=== PATIENT | male | born 1945 | race Caucasian/White ===

== ENCOUNTER 2016-09-10 04:40 | Emergency (ER) | payer OTHER ==
[~2016-09-10] VITALS: Ht 188 cm; Wt 93.5 kg
[2016-09-10 04:43] VITALS: BP 129/91; PULSE 91; RESP 22; TEMP 97.7; O2SAT 95
[2016-09-10] MEDS ORDERED: CARB10TA2 PO (05:18)
[2016-09-10] MEDS ORDERED: AZIL1TAB2 PO (05:18)
[2016-09-10] MEDS ORDERED: KETOROLAC TROMETHAMINE 30 MG/ML (IVP) VIAL IVP ONE (05:30)
[2016-09-10] MEDS ORDERED: ONDANSETRON HCL 4 MG/2 ML VIAL IVP ONE (05:30)
[2016-09-10] MEDS ORDERED: HYDROmorphone HCL PF 1 MG/ML VIAL IVS ONE (05:30)
[2016-09-10] MEDS ORDERED: SODIUM CHLORIDE 0.9% FLUSH 5 ML FLUSH IVF PRN (05:30)
[2016-09-10 05:38] VITALS: O2SAT 97
[2016-09-10 05:44] LABS: AUTOMATED NEUTROPHIL # 4.5 TH/MM3 (1.8-7.7); BASOPHIL % 0.4 % (0.0-2.0); EOSINOPHIL # 0.1 TH/MM3 (0-0.4); EOSINOPHIL % 1.1 % (0.0-4.0); HEMATOCRIT 44.4 % (39.0-51.0); HEMO FLAGS DIFF FINAL; LYMPH % 21.3 % (9.0-44.0); LYMPHOCYTE # 1.4 TH/MM3 (1.0-4.8); MEAN CELL VOLUME 91.6 FL (80.0-100.0); MEAN CORPUSCULAR HEMOGLOBIN 31.3 PG (27.0-34.0); MEAN CORPUSCULAR HGB CONC 34.2 % (32.0-36.0); MONO % 11.1 % (0.0-8.0); NEUT % 66.1 % (16.0-70.0); PLATELET COUNT 142 TH/MM3 (150-450); RED BLOOD COUNT 4.85 MIL/MM3 (4.50-5.90); RED CELL DISTRIBUTION WIDTH 13.4 % (11.6-17.2); WHITE BLOOD COUNT 6.7 TH/MM3 (4.0-11.0)
[2016-09-10 05:47] LABS: BICARBONATE 24.9 MEQ/L (21.0-32.0); POTASSIUM 3.9 MEQ/L (3.5-5.1)
--- NOTE | 2016-09-10 05:58 | RADRPT ---
EXAM DATE/TIME: 09/10/2016 05:43 [facility] COMPARISON: No previous studies available for comparison. INDICATIONS : Left flank pain x4 days. ORAL CONTRAST: No oral contrast ingested. RADIATION DOSE: 11.29 CTDIvol (mGy) MEDICAL HISTORY : Renal calculi. SURGICAL HISTORY : None. ENCOUNTER: Initial ACUITY: 4 - 6 days PAIN SCALE: 4/10 LOCATION: Left flank TECHNIQUE: Volumetric scanning of the abdomen and pelvis was performed. Using automated exposure control and ad justment of the mA and/or kV according to patient size, radiation dose was kept as low as reasonably achievable to obtain optimal diagnostic quality images. FINDINGS: LOWER LUNGS: Small left effusion and left basilar atelectasis. LIVER: Homogeneous density without lesion. There is no dilation of the biliary tree. No calcified gallston es. SPLEEN: Normal size without lesion. PANCREAS: Within normal limits. KIDNEYS: No mass or hydronephrosis. 2 mm left upper pole renal calculus. ADRENAL GLANDS: Within normal limits. VASCULAR: Atherosclerotic calcifications of the aorta and iliac vessels. BOWEL/MESENTERY: The stomach, small bowel, and colon demonstrate no acute abnormality. There is no free intraperitone al air or fluid. There is diverticulosis of the sigmoid colon. ABDOMINAL WALL: Small fat containing umbilical hernia. Small fat containing left inguinal hernia. RETROPERITONEUM: There is no lymphadenopathy. BLADDER: No wall thickening or mass. REPRODUCTIVE: Within normal limits. INGUINAL: There is no lymphadenopathy or hernia. MUSCULOSKELETAL: [id number] degenerative changes of the lumbar spine. L5 spondylolysis. CONCLUSION: 1. Nonobstructing left upper pole renal calculus. 2. Diverticulosis 3. Fat containing umbilical hernia and left inguinal hernia. 4. Atherosclerosis. Que Leal MD on September 10, 2016 at 5:54 Board Certified Radiologist. This report was verified electronically.
[2016-09-10] MEDS ORDERED: AZIT250T3 PO (06:30)
[2016-09-10] MEDS ORDERED: SODIUM CHLOR 0.9% 1000 ML INJ 1,000 ML IV ONE (06:30)
[2016-09-10] MEDS ORDERED: HYDR-3534 PO (06:31)
--- NOTE | 2016-09-10 06:31 | PD ---
HPI Chief Complaint: Flank/Kidney Pain Time Seen by Provider: 05:01 Travel History International Travel<30 days: No Contact w/Intl Traveler<30days: No Traveled to known affect area: No History of Present Illness HPI The patient 70 years old. He had a fall about 3 days prior and landed on his left side. Since then the pain has been worsening. Intervals of spasming pain which apparently radiate throughout the body. He is unsure if she has had hematuria due to limited carbidopa medications. He has a history of kidney stones previously many years ago. He's had no fever nausea vomiting or diarrhea. He does report some mild shortness of breath. PFSH Past Medical History Diminished Hearing: No Kidney Stones: Yes Neurologic: Yes ([facility]IN[facility]S) Social History Alcohol Use: Yes (2 BEERS DAILY) Tobacco Use: No Substance Use: No Allergies-Medications (Allergen,Severity, Reaction): Coded Allergies: No Known Allergies (Unverified , 09/10/16) Reported Meds & Prescriptions Reported Meds & Active Scripts Active Lortab (Hydrocodone-Acetaminophen) 7.5-325 Mg Tab 1-2 Tab PO Q6H PRN Azithromycin 250 Mg Tab 250 Mg PO DAILY 4 Days Reported Azilect (Rasagiline) 1 Mg Tab 1 Mg PO DAILY Carbidopa-Levodopa 10-100 Mg Tab 1 Tab PO QID Review of Systems Except as stated in HPI: all other systems reviewed are Neg General / Constitutional: No: Fever, Chills Cardiovascular: No: Chest Pain or Discomfort Physical Exam Narrative GENERAL: 70 yo M, WNWD, NAD SKIN: Warm and dry. HEAD: Atraumatic. Normocephalic. EYES: Pupils equal and round. No scleral icterus. No injection or drainage. ENT: No nasal bleeding or discharge. Mucous membranes pink and moist. NECK: Trachea midline. No JVD. CARDIOVASCULAR: Regular rate and rhythm. RESPIRATORY: No accessory muscle use. Clear to auscultation. Breath sounds equal bilaterally. GASTROINTESTINAL: Abdomen soft, non-tender, nondistended. Hepatic and splenic margins not palpable. MUSCULOSKELETAL: Extremities without clubbing, cyanosis, or edema. No obvious deformities. NEUROLOGICAL: Awake and alert. No obvious cranial nerve deficits. Parkinson's disease hx. PSYCHIATRIC: Appropriate mood and affect; insight and judgment normal. Data Data Last Documented VS Vital Signs Date Time Temp Pulse Resp B/P Pulse Ox O2 Delivery O2 Flow Rate FiO2 09/10/16 05:38 97 Room Air 09/10/16 04:43 97.7 91 22 129/91 Orders Basic Metabolic Panel (Bmp) (09/10/16 05:18) Complete Blood Count With Diff (09/10/16 05:18) Urinalysis - C+S If Indicated (09/10/16 05:18) Ct Abd/Pel W/O Iv Contrast (09/10/16 05:18) Iv Access Insert/Monitor (09/10/16 05:18) Ecg Monitoring (09/10/16 05:18) Oximetry (09/10/16 05:18) Ondansetron Inj (Zofran Inj) (09/10/16 05:30) Sodium Chloride 0.9% Flush (Ns Flush) (09/10/16 05:30) Ketorolac Inj (Toradol Inj) (09/10/16 05:30) Hydromorphone Pf Inj (Dilaudid Pf Inj) (09/10/16 05:30) Sodium Chlor 0.9% 1000 Ml Inj (Ns 1000 M (09/10/16 06:30) Chest, Single Ap (09/10/16 ) Labs Laboratory Tests Test 09/10/16 05:20 White Blood Count 6.7 TH/MM3 Red Blood Count 4.85 MIL/MM3 Hemoglobin 15.2 GM/DL Hematocrit 44.4 % Mean Corpuscular Volume 91.6 FL Mean Corpuscular Hemoglobin 31.3 PG Mean Corpuscular Hemoglobin 34.2 % Concent Red Cell Distribution Width 13.4 % Platelet Count 142 TH/MM3 Mean Platelet Volume 8.7 FL Neutrophils (%) (Auto) 66.1 % Lymphocytes (%) (Auto) 21.3 % Monocytes (%) (Auto) 11.1 % Eosinophils (%) (Auto) 1.1 % Basophils (%) (Auto) 0.4 % Neutrophils # (Auto) 4.5 TH/MM3 Lymphocytes # (Auto) 1.4 TH/MM3 Monocytes # (Auto) 0.8 TH/MM3 Eosinophils # (Auto) 0.1 TH/MM3 Basophils # (Auto) 0.0 TH/MM3 CBC Comment DIFF FINAL Differential Comment Sodium Level 144 MEQ/L Potassium Level 3.9 MEQ/L Chloride Level 111 MEQ/L Carbon Dioxide Level 24.9 MEQ/L Anion Gap 8 MEQ/L Blood Urea Nitrogen 17 MG/DL Creatinine 1.06 MG/DL Estimat Glomerular Filtration 69 ML/MIN Rate Random Glucose 107 MG/DL Calcium Level 8.7 MG/DL MDM Medical Decision Making Medical Screen Exam Complete: Yes Emergency Medical Condition: Yes Medical Record Reviewed: Yes Differential Diagnosis Renal stone/ureteric stone, UTI, pulmonary contusion, atelectasis, L rib contusion Narrative Course CBC & BMP Diagram 09/10/16 05:20 Last 24 hours Impressions Abdomen/Pelvis CT 09/10/16 0518 Signed Impressions: Service Date/Time: Saturday, September 10, 2016 05:43 - CONCLUSION: 1. Nonobstructing left upper pole renal calculus. 2. Diverticulosis 3. Fat containing umbilical hernia and left inguinal hernia. 4. Atherosclerosis. Que Leal MD There is left basilar airspace disease. Incentive spirometry and azithromycin and Lortab. Return precautions discussed. Diagnosis Primary Impression: Left flank pain Additional Impression: Left pulmonary infiltrate on CXR Referrals: Primary Care Physician 2 days Additional Instructions: You have a choice when it comes to health care, and we are glad that you chose [facility]. Hopefully, we have met your expectations on today's visit. You are welcome to return to [facility] at any time, as we are committed to meeting the health care needs of our community. Med/Other Pt SpecificInfo: Prescription(s) given Scripts Hydrocodone-Acetaminophen (Lortab)7.5-325 Mg Tab1-2 Tab PO Q6H PRN (PAIN SCALE 6 TO 10) #30 TAB Ref 0 Prov:Primo Sullivan MD 09/10/16 Azithromycin 250 Mg [id number] Mg PO DAILY 4 Days Ref 0 Prov:Primo Sullivan MD 09/10/16 Disposition: 01 DISCHARGE HOME Condition: Stable Primo Sullivan MD Sep 10, 2016 06:31
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
[2016-09-10] MEDS ORDERED: AZITHROMYCIN 250 MG TAB PO ONE (07:15)
[2016-09-10 07:39] LABS: BLOOD, URINE NEG (NEG); COMMENT (UR) CULT NOT INDICATED; CULTURE IF INDICATED CULT NOT INDICATED; GLUCOSE,URINE NEG (NEG); KETONE, URINE NEG (NEG); MUCUS URINE FEW /lpf (OCC); NITRITE,URINE NEG (NEG); PH, URINE 5.5 (5.0-8.5); URINE COLOR DARK-YELLOW (YELLW/STRAW)
[2016-09-10 08:13] VITALS: BP 130/84
== END 2016-09-10 08:14 | disposition home or self-care (01) ==
LOC: NEPC 04:40
DX: R10.9 Unspecified abdominal pain (principal); R91.8 Other nonspecific abnormal finding of lung field; K57.30 Diverticulosis of large intestine without perforation or abscess without bleeding; N20.0 Calculus of kidney; K40.90 Unilateral inguinal hernia, without obstruction or gangrene, not specified as recurrent; K42.9 Umbilical hernia without obstruction or gangrene; R06.02 Shortness of breath
CPT/HCPCS: 71010; 74176; 80048; 81001; 85025; 94150; 96361; 96374; 96375; 99284; J1170; J1885; J2405; J7030